=== PATIENT | female | born 1990 | race Caucasian/White ===

== ENCOUNTER 2019-10-03 07:36 | Inpatient (IN) ==
--- OUTSIDE RECORDS SUMMARY | 2019-10-03 07:38 | External Medical Summary | Continuity of Care Document ---
:1990 Author Name Jonelle Howe Address Unavailable Unavailable , Care Team Providers Name Role Phone Pro Coco Howe Unavailable [email or web address] Unavailable Unavailable Assessments Assessed Problems:Encounter for preventive health examination Problems Amenorrhea (626.0) (N91.2) Allergies and Adverse Reactions Allergy history not documented Medications Medications not documented Procedures Procedures not documented Immunizations PPD On: 08-Jun-2015 14:37 Lot #: [id number], [employer] Interventions Medications/Immunizations AdministeredPPD; Done: 08 Jun 2015 Plan of Treatment Planned Observations Planned Goals not documented Results No Known Results Results not documented Encounters Appointment; Med ID[facility], Nursing Station 08-Jun-2015 12:15 Encounter Diagnosis: Problem not documented
[2019-10-03] MEDS ORDERED: OXYTOCIN 30 UNITS/500 ML BAG IV PRN ×2 (09:15)
--- NOTE | 2019-10-03 09:15 | Obstetrical Progress Note ---
Date of Service October 03, 2019 Assessment & Plan Admission and Anticipated Discharge Date Admission Date: October 03, 2019 Subjective Pt doing well Induction for elev. BMI @ 39 +weeks Otherwise unremarkable;e FHR; CAT1 CTX; 1-3mins VE: Ft/50/post/soft Loaiza bulb placed without difficulty. 30cc saline in bulb pt tolerated procedure well discussed pitocin use . pt agrees Results & Data ([facility]) Vital Signs (Past 12 Hours) Vital Signs Temp Pulse Resp BP 10/03/19 07:53 37.1 C 20 10/03/19 07:49 100 H 135/77
[2019-10-03 09:37] LABS: Hematocrit (blood only) 34.3 % (37-47); Hemoglobin 11.4 g/dL (12.0-16.0); Mean Corpuscular Hemoglobin 27.2 pg (25-34); Mean Corpuscular Volume 81.9 fL (80-100); Mean Platelet Volume 11.7 fL (7.4-10.4); Platelet Count 195 K/uL (130-400); RDW Coefficient of Variation 14.4 % (11.5-14.5); RDW Standard Deviation 42.8 fL (36.4-46.3); Red Blood Count 4.19 M/uL (4.2-5.4); White Blood Count 13.01 K/uL (4.8-10.8)
[2019-10-03] MEDS: LACTATED RINGER'S 1,000 ML IV PRN ×2 (09:42→17:28)
[2019-10-03 09:46] LABS: Mean Corpuscular Hgb Conc 33.2 g/dL (32-36)
[2019-10-03] MEDS ORDERED: PANTOprazole 40 MG TAB PO ONE (14:45)
[2019-10-03] MEDS ORDERED: fentaNYL citrate 100 MCG/2 ML VIAL ONE (17:18)
[2019-10-03] MEDS ORDERED: ePHEDrine sulfate 50 MG/ML AMP ONE (17:18)
[2019-10-03] MEDS ORDERED: BUPIVACAINE 0.25% 30 ML VIAL ONE ×2 (17:18→22:11)
[2019-10-03] MEDS ORDERED: fentaNYL 2MCG/ML ROPIV 1.25MG/ML 100 ML BAG EPI ONE (17:19)
--- NOTE | 2019-10-03 18:02 | Anesthesiology Consultation ---
Date of Service October 03, 2019 Assessment & Plan (1) Encounter for pre-operative examination: Chart Review Chart Review: Acceptable Risk for Surgery and Patient NOT seen in Pre Admission Testing Consults Requested none ASA ASA3 Proposed Anesthesia Anesthesia Type: Labor Epidural Risk / Benefits Reviewed With: PT / POA / Parent / Guardian, Accepts Plan and Informed Consent Obtained History Height/Weight Height: 5 ft 6 in Weight: 122.47 kg Allergies Allergy/AdvReac Type Severity Reaction Status Date / Time No Known Allergies Allergy Mild 0 Verified 04/20/18 08:10 Medications Home Medications Medication Instructions Recorded Confirmed Last Taken valacyclovir [Valtrex] PRN 04/20/18 04/14/18 12:00 ferrous sulfate [iron] 325 mg PO DAILY 10/03/19 10/03/19 10/03/19 folic acid 1 mg PO DAILY 10/03/19 10/03/19 10/03/19 omeprazole [Prilosec] 20 mg PO DAILY 10/03/19 10/03/19 10/02/19 prenat.vits,lili,kaz-gejj-unaqk 1 tab PO DAILY 10/03/19 10/03/19 10/03/19 [ Vitamin] Active Medications Generic Name Dose Route Start Last Admin Trade Name Freq PRN Reason Stop Dose Admin Lactated Ringer's 1,000 mls @ 125 mls/hr 10/03/19 09:15 10/03/19 18:09 Lr IV 10/05/19 09:14 125 mls/hr .Q8H PRN Infusion L&D Protocol Protocol Oxytocin 30 units in 500 mls @ 8 mls/hr 10/03/19 09:15 10/03/19 17:00 Pitocin IV 10/05/19 09:14 0.48 units/hr .Q24H PRN 8 mls/hr Labor Induction/Augmentation Titration Protocol 0.48 UNITS/HR NPO Date Last Intake of Fluids: 10/03/19 Time Last Intake of Fluids: 18:04 Date Last Intake of Solids: 10/03/19 Time Last Intake of Solids: 06:30 Past Medical History Medical History Missed Exercise / Class Metabolic Activity II 4-5 Yardwork/Stairs/Walk up hill Past Family History Family History Father Diabetes Mother Cardiovascular disease Past Surgical History Surgical History [place] teeth extracted Past Anesthesia History No Hx of Anesthesia Complications History of PONV No Hx of PONV Social History Smoking Status: Former smoker Smoking End Date: 04/21/2017 Hx Alcohol Use: No alcohol intake frequency: a few times a month Hx Substance Use: No Review of Systems Patient denies history of abnormal bleeding or bleeding disorder. Patient denies active use of anticoagulants other than low dose aspirin. Patient denies numbness, tingling or weakness in lower extremities. Negative for chest pain or shortness of breath. Physical Exam Vital Signs Last Vital Signs Temp 37.0 C 10/03/19 15:21 Pulse 75 10/03/19 17:58 Resp 20 10/03/19 14:27 BP 141/75 H 10/03/19 17:42 Pulse Ox 100 10/03/19 17:58 Constitutional + obese (Gravid uterus) ENMT Mouth: no TMJ abnormality and oral opening not small Thyromental Distance: > or= 3.5 Finger Breadths Mallampati Class: II Neck normal visual inspection, + short neck and + thick neck; neck extension not limited Respiratory normal respiratory effort Auscultation: lungs clear to auscultation bilaterally Cardiovascular Rate/Rhythm: regular rate and regular rhythm Heart Sounds: no murmur Neurologic moves all extremities Motor/Sensory: no sensory deficit Psychiatric Orientation: alert and oriented x 3 Testing Laboratory Results 10/03/19 09:25
[2019-10-03] MEDS ORDERED: ePHEDrine sulfate 50 MG/ML AMP IV PRN (18:37)
[2019-10-03] MEDS ORDERED: fentaNYL 2MCG/ML ROPIV 1.25MG/ML 100 ML BAG EPI PRN (18:37)
[2019-10-03] MEDS ORDERED: DiphenhydrAMINE HCL 50 MG/ML VIAL IV PRN (18:37)
[2019-10-03] MEDS ORDERED: NALOXONE HCL 0.4 MG/1 ML VIAL/CARP IV PRN (18:37)
[2019-10-03] MEDS ORDERED: NALOXONE HCL 1 MG in SODIUM CHLORIDE 0.9% 1000ML 1,000 ML IV PRN (18:37)
[2019-10-03] MEDS ORDERED: ONDANSETRON INJ 2 MG/ML 2 ML VIAL IV PRN (18:37)
--- NOTE | 2019-10-03 20:06 | Obstetrical Progress Note ---
Date of Service October 03, 2019 Assessment & Plan Admission and Anticipated Discharge Date Admission Date: October 03, 2019 Subjective Pt doing well Induction for elev.BMI FHR CAT1 Ctx; 1-2mins Pit; 6Mu VE; 3/50/-2 AROM with FSE- clear fluid Plan; continue induction w/Pitocin Results & Data ([facility]) Vital Signs (Past 12 Hours) Vital Signs Temp Pulse Resp BP Pulse Ox 10/03/19 20:02 84 112/59 L 10/03/19 19:58 95 H 99 10/03/19 19:53 85 97 10/03/19 19:48 81 114/66 98 10/03/19 19:43 80 97 10/03/19 19:38 81 99 10/03/19 19:33 89 120/87 100 10/03/19 19:30 18 10/03/19 19:28 95 H 99 10/03/19 19:23 99 H 99 10/03/19 19:18 80 118/77 100 10/03/19 19:13 83 100 10/03/19 19:08 83 100 10/03/19 19:03 77 100 10/03/19 19:00 86 123/69 10/03/19 18:58 37.1 C 79 18 100 10/03/19 18:53 87 100 10/03/19 18:50 89 122/68 10/03/19 18:48 80 99 10/03/19 18:43 94 H 99 10/03/19 18:38 93 H 98 10/03/19 18:37 125/69 10/03/19 18:35 93 H 123/65 10/03/19 18:33 98 H 125/68 98 10/03/19 18:31 96 H 133/71 10/03/19 18:29 103 H 124/68 10/03/19 18:28 107 H 99 10/03/19 18:27 102 H 130/66 10/03/19 18:25 103 H 141/72 H 10/03/19 18:23 100 H 126/72 100 10/03/19 18:21 94 H 124/71 10/03/19 18:19 83 124/69 10/03/19 18:18 87 100 10/03/19 18:13 84 100 10/03/19 18:08 81 100 10/03/19 18:03 96 H 100 10/03/19 17:58 75 100 10/03/19 17:53 82 100 10/03/19 17:48 84 100 10/03/19 17:43 81 99 10/03/19 17:42 81 141/75 H 10/03/19 15:21 37.0 C 74 135/63 10/03/19 14:27 88 20 138/86 10/03/19 13:23 71 132/71 10/03/19 13:22 18 10/03/19 12:12 80 20 122/74 10/03/19 11:11 36.9 C 75 20 120/70 10/03/19 10:26 78 16 110/64 10/03/19 09:43 80 18 127/68
[2019-10-03] MEDS ORDERED: METHYLERGONOVINE MALEATE 0.2 MG/ML AMP ONE (23:51)
[2019-10-04] MEDS ORDERED: DIPHTHERIA/TETANUS/PERTUSSIS 0.5 ML SYR/VIAL IM ONE (00:07)
[2019-10-04] MEDS ORDERED: BENZOCAINE 20% AER SPR 82.5 GM CAN EXT PRN (00:07)
[2019-10-04] MEDS ORDERED: bisacodyL 10 MG SUPP PR PRN (00:07)
[2019-10-04] MEDS ORDERED: HYDROCORTISONE ACETATE 25 MG SUPP PR PRN (00:07)
[2019-10-04] MEDS ORDERED: METHYLERGONOVINE MALEATE 0.2 MG/ML AMP IM ONE (00:07)
[2019-10-04] MEDS ORDERED: ACETAMINOPHEN 325 MG TAB PO PRN (00:07)
[2019-10-04] MEDS ORDERED: miSOPROStoL 200 MCG TAB PR ONE (00:07)
[2019-10-04] MEDS ORDERED: OXYTOCIN 30 UNITS/500 ML BAG IV PRN (00:07)
[2019-10-04 00:23] LABS: Base Excess Cord Venous Blood -5.6 mEq/L (-7.7-1.9); Cord Venous Blood HCO3 21 mmol/L (18.4-26.8); Cord Venous Blood PCO2 44 mmHg (30.4-57.2); Cord Venous Blood PO2 26 mmHg (14.1-43.3); Cord Venous Blood pH 7.29 (7.20-7.44)
[2019-10-04 00:25] LABS: Base Excess Cord Arterial Bld -7.1 mEq/L (-9-1.8); CO2 Cord Arterial Blood 60 mmHg (39.1-73.5); HCO3 Cord Arterial Blood 22 mmol/L (19.7-28.5); O2 Saturation Cord Venous Bld < 60.0 % (<68); Oxygen Sat Cord Arterial Blood < 60.0 % (<60); PO2 Cord Arterial Blood 15 mmHg (4.1-31.7); pH Cord Arterial Blood 7.19 (7.1-7.38)
--- NOTE | 2019-10-04 01:29 | Delivery Summary ---
DATE OF OPERATION: 10/03/2019 The patient delivered a live infant in left occiput anterior presentation. There was no nuchal cord. was delivered, placed on mother's abdomen. Of note, there was terminal meconium. Cord was clamped and cut and handed over to the pediatric team. was 7 and 9. The patient's weight is pending. Cord gas and cord blood was obtained. Placenta was spontaneously delivered. Inspection of the placenta shows a grossly normal looking placenta with meconium. Estimated blood loss is 450 mL. Inspection of the perineum shows a first-degree midline laceration which was repaired with Vicryl stitch. Rectal exam post repair shows good sphincter tone, no sutures are palpated in the rectum. All instruments were removed from the vagina and accounted for x2 including sponges, needles and retractors. Baby and mother are stable in recovery. I attest to the content of the Intraoperative Record and any orders documented therein. Any exception s are noted below.
[2019-10-04] MEDS: SUPERCREAM 0.870% 15 GM JAR EXT PRN (01:41)
[2019-10-04] MEDS: IBUPROFEN 600 MG TAB PO PRN ×4 (01:42→17:01)
--- NOTE | 2019-10-04 07:14 | Anesthesia Procedure Note ---
Date of Service October 04, 2019 Anesthesia Post Epidural Note Vital Signs Vital Signs: Temp Pulse Resp BP Pulse Ox 36.8 C 105 H 16 126/82 97 10/04/19 03:00 10/04/19 03:00 10/04/19 03:00 10/04/19 03:00 10/04/19 03:00 Pain Intensity Lower Abdomen: Pain Intensity: 2 Notes Mental Status: alert / awake / arousable and participated in evaluation Nausea / Vomiting: adequately controlled Pain: adequately controlled Airway Patency, RR, SpO2: stable & adequate BP & HR: stable & adequate Hydration State: stable & adequate Neuraxial Anesthesia: was administered and sensory block is resolving Anesthetic Complications: no major complications apparent and Pt Satisfied with anesthetic care Epidural: Removed without complications and With tip intact
--- NOTE | 2019-10-04 08:14 | Obstetrical Progress Note ---
Date of Service October 04, 2019 Assessment & Plan Admission and Anticipated Discharge Date Admission Date: October 03, 2019 Subjective Patient is seen and examined. She feels well, no complaints. Ambulating without dizziness Voiding without difficulty Tolerating regular diet with out N&V Bleeding is minimal No fever/ chills/ CP/ SOB/ N&V/ Leg pain Breast feeding without problems Vital Signs Temp Pulse Pulse Resp BP BP Pulse Ox 10/04/19 03:00 36.8 C 105 H 16 126/82 97 10/04/19 02:16 94 H 118/55 L 10/04/19 02:15 18 10/04/19 01:42 100 H 119/61 10/04/19 01:40 18 10/04/19 01:10 18 10/04/19 00:58 101 H 130/71 10/04/19 00:55 18 10/04/19 00:40 18 10/04/19 00:28 113 H 122/54 L 10/04/19 00:25 18 10/04/19 00:10 18 10/03/19 23:57 100 H 111/56 L 10/03/19 23:55 100 H 108/54 L 10/03/19 23:45 120 H 84 L 10/03/19 23:43 112 H 80 L 10/03/19 23:38 112 H 93 10/03/19 23:33 122 H 97 10/03/19 23:32 117 H 84 L 10/03/19 23:30 18 10/03/19 23:28 108 H 96 10/03/19 23:27 125 H 94/62 L 10/03/19 23:25 111 H 87 L 10/03/19 23:23 122 H 97 10/03/19 23:18 103 H 79 L 10/03/19 23:13 100 H 98 10/03/19 23:11 107 H 92 10/03/19 23:08 109 H 100 10/03/19 23:03 100 H 97 10/03/19 23:01 100 H 120/57 L 10/03/19 23:00 18 10/03/19 22:58 98 H 96 10/03/19 22:56 94 H 102/52 L 10/03/19 22:53 96 H 100 10/03/19 22:52 93 H 110/53 L 10/03/19 22:48 96 H 100 10/03/19 22:47 89 99/53 L 10/03/19 22:43 109 H 93/55 L 97 10/03/19 22:38 91 H 100 10/03/19 22:37 83 98/49 L 10/03/19 22:33 83 100 10/03/19 22:30 93 H 18 101/51 L 10/03/19 22:28 111 H 97/55 L 98 10/03/19 22:26 100 H 89/55 L 10/03/19 22:25 99 H 93 10/03/19 22:24 89 91/55 L 10/03/19 22:23 92 H 97 10/03/19 22:22 81 94/55 L 10/03/19 22:20 90 96/54 L 10/03/19 22:18 96 H 100 10/03/19 22:17 96 H 111/51 L 10/03/19 22:13 88 99 10/03/19 22:08 104 H 100 10/03/19 22:03 99 H 100 10/03/19 22:00 18 10/03/19 21:58 94 H 100 10/03/19 21:53 113 H 100 10/03/19 21:48 97 H 101/59 L 99 10/03/19 21:43 101 H 98 10/03/19 21:38 91 H 98 10/03/19 21:33 94 H 100 10/03/19 21:30 18 10/03/19 21:28 86 99 10/03/19 21:23 93 H 99 10/03/19 21:18 95 H 124/72 100 10/03/19 21:13 81 99 10/03/19 21:08 85 100 10/03/19 21:04 75 146/83 H 10/03/19 21:03 78 99 10/03/19 21:01 37.1 C 10/03/19 21:00 18 10/03/19 20:58 93 H 100 10/03/19 20:56 98 H 93 10/03/19 20:53 84 99 10/03/19 20:48 81 99 10/03/19 20:47 92 H 97/53 L 10/03/19 20:43 86 100 10/03/19 20:38 95 H 98 10/03/19 20:34 85 102/55 L 10/03/19 20:33 86 98 10/03/19 20:30 18 10/03/19 20:28 94 H 100 10/03/19 20:23 94 H 99 10/03/19 20:18 91 H 106/57 L 100 Lab Results 10/03/19 10/03/19 10/03/19 Range/Units 09:25 23:47 23:47 WBC 13.01 H (4.8-10.8) K/uL RBC 4.19 L (4.2-5.4) M/uL Hgb 11.4 L (12.0-16.0) g/dL Hct 34.3 L (37-47) % MCV 81.9 (80-100) fL MCH 27.2 (25-34) pg MCHC 33.2 (32-36) g/dL RDW Std Deviation 42.8 (36.4-46.3) fL RDW Coeff of Amisha 14.4 (11.5-14.5) % Plt Count 195 (130-400) K/uL MPV 11.7 H (7.4-10.4) fL Cord ABG pH 7.19 (7.1-7.38) Cord ABG pCO2 60 (39.1-73.5) mmHg Cord ABG pO2 15 (4.1-31.7) mmHg Cord ABG HCO3 22 (19.7-28.5) mmol/L Cord ABG Base Excess -7.1 (-9-1.8) mEq/L Cord ABG O2 Sat < 60.0 (<60) % Cord VBG pH 7.29 (7.20-7.44) Cord VBG pCO2 44 (30.4-57.2) mmHg Cord VBG pO2 26 (14.1-43.3) mmHg Cord VBG HCO3 21 (18.4-26.8) mmol/L Cord VBG Base Excess -5.6 (-7.7-1.9) mEq/L Cord VBG O2 Sat < 60.0 (<68) % Blood Gas Comments CRUZ CRUZ PE: General: Alert, orientedx3, NAD Abd: soft, NT, fundus firm, below Umbilicus Perineum intact, Lochia rubra minimal Ext; NT, no edema AP: 29 yo s/p , ppd# 1 VSS Afebrile doing well Continue routine care All questions were answered D/C home tomorrow Results & Data ([facility]) Vital Signs (Past 12 Hours) Vital Signs Temp Pulse Pulse Resp BP BP Pulse Ox 10/04/19 03:00 36.8 C 105 H 16 126/82 97 10/04/19 02:16 94 H 118/55 L 10/04/19 02:15 18 10/04/19 01:42 100 H 119/61 10/04/19 01:40 18 10/04/19 01:10 18 10/04/19 00:58 101 H 130/71 10/04/19 00:55 18 10/04/19 00:40 18 10/04/19 00:28 113 H 122/54 L 10/04/19 00:25 18 10/04/19 00:10 18 10/03/19 23:57 100 H 111/56 L 10/03/19 23:55 100 H 108/54 L 10/03/19 23:45 120 H 84 L 10/03/19 23:43 112 H 80 L 10/03/19 23:38 112 H 93 10/03/19 23:33 122 H 97 10/03/19 23:32 117 H 84 L 10/03/19 23:30 18 10/03/19 23:28 108 H 96 10/03/19 23:27 125 H 94/62 L 10/03/19 23:25 111 H 87 L 10/03/19 23:23 122 H 97 10/03/19 23:18 103 H 79 L 10/03/19 23:13 100 H 98 10/03/19 23:11 107 H 92 10/03/19 23:08 109 H 100 10/03/19 23:03 100 H 97 10/03/19 23:01 100 H 120/57 L 10/03/19 23:00 18 10/03/19 22:58 98 H 96 10/03/19 22:56 94 H 102/52 L 10/03/19 22:53 96 H 100 10/03/19 22:52 93 H 110/53 L 10/03/19 22:48 96 H 100 10/03/19 22:47 89 99/53 L 10/03/19 22:43 109 H 93/55 L 97 10/03/19 22:38 91 H 100 10/03/19 22:37 83 98/49 L 10/03/19 22:33 83 100 10/03/19 22:30 93 H 18 101/51 L 10/03/19 22:28 111 H 97/55 L 98 10/03/19 22:26 100 H 89/55 L 10/03/19 22:25 99 H 93 10/03/19 22:24 89 91/55 L 10/03/19 22:23 92 H 97 10/03/19 22:22 81 94/55 L 10/03/19 22:20 90 96/54 L 10/03/19 22:18 96 H 100 10/03/19 22:17 96 H 111/51 L 10/03/19 22:13 88 99 10/03/19 22:08 104 H 100 10/03/19 22:03 99 H 100 10/03/19 22:00 18 10/03/19 21:58 94 H 100 10/03/19 21:53 113 H 100 10/03/19 21:48 97 H 101/59 L 99 10/03/19 21:43 101 H 98 10/03/19 21:38 91 H 98 10/03/19 21:33 94 H 100 10/03/19 21:30 18 10/03/19 21:28 86 99 10/03/19 21:23 93 H 99 10/03/19 21:18 95 H 124/72 100 10/03/19 21:13 81 99 10/03/19 21:08 85 100 10/03/19 21:04 75 146/83 H 10/03/19 21:03 78 99 10/03/19 21:01 37.1 C 10/03/19 21:00 18 10/03/19 20:58 93 H 100 10/03/19 20:56 98 H 93 10/03/19 20:53 84 99 10/03/19 20:48 81 99 10/03/19 20:47 92 H 97/53 L 10/03/19 20:43 86 100 10/03/19 20:38 95 H 98 10/03/19 20:34 85 102/55 L 10/03/19 20:33 86 98 10/03/19 20:30 18 10/03/19 20:28 94 H 100 10/03/19 20:23 94 H 99 10/03/19 20:18 91 H 106/57 L 100
[2019-10-04] MEDS: PRENATAL VITAMIN 1 TAB PO SCH (08:50)
[2019-10-04] MEDS: DOCUSATE SODIUM 100 MG CAP PO SCH ×2 (08:50→20:38)
[2019-10-05] MEDS: IBUPROFEN 600 MG TAB PO PRN (05:54)
[2019-10-05 06:31] LABS: Hematocrit (blood only) 34.5 % (37-47); Mean Corpuscular Hemoglobin 27.2 pg (25-34); Mean Corpuscular Hgb Conc 31.9 g/dL (32-36); Mean Corpuscular Volume 85.2 fL (80-100); Mean Platelet Volume 11.9 fL (7.4-10.4); Platelet Count 177 K/uL (130-400); RDW Coefficient of Variation 14.9 % (11.5-14.5); RDW Standard Deviation 46.1 fL (36.4-46.3); Red Blood Count 4.05 M/uL (4.2-5.4); White Blood Count 13.54 K/uL (4.8-10.8)
--- NOTE | 2019-10-05 08:08 | Obstetrical Progress Note ---
Date of Service October 05, 2019 Assessment & Plan Admission and Anticipated Discharge Date Admission Date: October 03, 2019 Subjective Doing well passing gas danilo diet ambulating well plans for discharge Physical Exam Constitutional: WD/WN, vitals as above comfortable fundus firm abdomen soft no edema neg Christen's for d/c Results & Data ([facility]) Vital Signs (Past 12 Hours) Vital Signs Temp Pulse Resp BP 10/04/19 23:20 36.7 C 96 H 18 117/80 Laboratory Results Laboratory Results - last 72 hr 10/03/19 10/03/19 10/03/19 09:25 23:47 23:47 WBC 13.01 H RBC 4.19 L Hgb 11.4 L Hct 34.3 L MCV 81.9 MCH 27.2 MCHC 33.2 RDW Std Deviation 42.8 RDW Coeff of Amisha 14.4 Plt Count 195 MPV 11.7 H Cord ABG pH 7.19 Cord ABG pCO2 60 Cord ABG pO2 15 Cord ABG HCO3 22 Cord ABG Base Excess -7.1 Cord ABG O2 Sat < 60.0 Cord VBG pH 7.29 Cord VBG pCO2 44 Cord VBG pO2 26 Cord VBG HCO3 21 Cord VBG Base Excess -5.6 Cord VBG O2 Sat < 60.0 Blood Gas Comments CRUZ CRUZ Blood Type Antibody Screen Screen 10/04/19 10/05/19 10:04 06:09 WBC 13.54 H RBC 4.05 L Hgb 11.0 L Hct 34.5 L MCV 85.2 MCH 27.2 MCHC 31.9 L RDW Std Deviation 46.1 RDW Coeff of Amisha 14.9 H Plt Count 177 MPV 11.9 H Cord ABG pH Cord ABG pCO2 Cord ABG pO2 Cord ABG HCO3 Cord ABG Base Excess Cord ABG O2 Sat Cord VBG pH Cord VBG pCO2 Cord VBG pO2 Cord VBG HCO3 Cord VBG Base Excess Cord VBG O2 Sat Blood Gas Comments Blood Type O Negative Antibody Screen NEGATIVE Screen Negative
[2019-10-05] MEDS: DOCUSATE SODIUM 100 MG CAP PO SCH (08:43)
[2019-10-05] MEDS: PRENATAL VITAMIN 1 TAB PO SCH (08:43)
[2019-10-05] MEDS ORDERED: MEASLES, MUMPS & RUBELLA VIRUS VIAL SQ ONE (10:02)
[2019-10-05] MEDS: SUPERCREAM 0.870% 15 GM JAR EXT PRN (12:07)
[2019-10-05] MEDS ORDERED: bisacodyL 5 MG TABEC PO SCH (20:00)
== END 2019-10-05 13:10 | disposition home or self-care (01) | DRG 807 ==
LOC: 4S1 07:36 → 4S2 10-04 02:48